=== PATIENT | male | born 2000 | race Hispanic/Latino ===

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

== ENCOUNTER 2018-01-03 14:36 | Emergency (ER) | payer OTHER ==
[2018-01-03 14:44] VITALS: BP 128/85; PULSE 73; RESP 18; TEMP 98; O2SAT 100
--- NOTE | 2018-01-03 15:22 | ED PDOC ---
HPI: Psych/Substance Abuse Time Seen by Provider: 01/03/18 14:59 Chief Complaint (Nursing): Substance Abuse Chief Complaint (Provider): reported drug use History Per: Patient History/Exam Limitations: no limitations Current Symptoms Are (Timing): Still Present Suicide/Self Injury Attempted (Context): None Modifying Factor(s): Marijuana Severity: Mild Associated Symptoms: denies: Depression, Paranoia, Suicidal Thoughts Additional Complaint(s): 17yo male arrives via EMS [place], on arrival he denies PCPC use, admits to marijuana use. He's cooperative, denies injury/ pain or psychiatric history. Past Medical History Reviewed: Historical Data, Nursing Documentation, Vital Signs Vital Signs: Last Vital Signs Temp 98 F 01/03/18 14:41 Pulse 73 01/03/18 14:41 Resp 18 01/03/18 14:41 BP 128/85 01/03/18 14:41 Pulse Ox 100 01/03/18 14:41 - Medical History PMH: No Chronic Diseases - Surgical History Surgical History: No Surg Hx - Family History Family History: States: Unknown Family Hx - Social History Current smoker - smoking cessation education provided: Yes Drugs: Cannabis - Allergies Allergies/Adverse Reactions: Allergies Allergy/AdvReac Type Severity Reaction Status Date / Time No Known Allergies Allergy Verified 12/02/17 23:17 Review of Systems Constitutional: Negative for: Fever, Chills Cardiovascular: Negative for: Chest Pain Respiratory: Negative for: Cough, Shortness of Breath Gastrointestinal: Negative for: Abdominal Pain Skin: Negative for: Rash, Lesions Neurological: Negative for: Seizures, Headache Psych: Negative for: Suicidal ideation Physical Exam - Reviewed Nursing Documentation Reviewed: Yes Vital Signs Reviewed: Yes - Physical Exam Appears: Positive for: Well, Non-toxic, No Acute Distress Head Exam: Positive for: ATRAUMATIC, NORMAL INSPECTION, NORMOCEPHALIC Skin: Positive for: Normal Color, Warm, DRY Eye Exam: Positive for: EOMI, Normal appearance, PERRL Neck: Positive for: Normal, Painless ROM Cardiovascular/Chest: Positive for: Regular Rate, Rhythm Respiratory: Positive for: Normal Breath Sounds. Negative for: Decreased Breath Sounds, Respiratory Distress Gastrointestinal/Abdominal: Positive for: Normal Exam, Bowel Sounds, Soft Back: Positive for: Normal Inspection Extremity: Positive for: Normal ROM Neurologic/Psych: Positive for: Alert, Oriented, Mood/Affect (cooperative, anxious), Gait (normal). Negative for: Motor/Sensory Deficits, Facial Droop - ECG O2 Sat by Pulse Oximetry: 100 Medical Decision Making Medical Decision Making: EKG interprted by me at sinus at 69bpm without tachycardia or ectopy patient wants to go home. Has stable vitals, not displaying any signs acute toxidrome, normal mentation, cannot hold against his will. Disposition - Clinical Impression Clinical Impression: Drug abuse - Patient ED Disposition Is Patient to be Admitted: No Counseled Patient/Family Regarding: Studies Performed, Diagnosis - Disposition Disposition: Routine/Home Disposition Time: 15:24 Condition: STABLE Instructions: Drug Abuse Treatment
== END 2018-01-03 16:54 | disposition home or self-care (01) ==
LOC: H.ER 14:36
DX: F19.10 Other psychoactive substance abuse, uncomplicated (principal)

== ENCOUNTER 2018-01-10 15:26 | Emergency (ER) | payer OTHER ==
[2018-01-10 15:30] VITALS: RESP 16
--- NOTE | 2018-01-10 16:51 | CT ---
PROCEDURE: CT HEAD WITHOUT CONTRAST. HISTORY: Altered mental status. Intracranial hemorrhage suspected COMPARISON: 12/03/2017 CT head TECHNIQUE: Axial computed tomography images were obtained through the head/brain without intravenous contrast. Radiation dose: Total exam DLP = 848.09 mGy-cm. This CT exam was performed using one or more of the following dose reduction techniques: Automated exposure control, adjustment of the mA and/or kV according to patient size, and/or use of iterative reconstruction technique. FINDINGS: HEMORRHAGE: No intracranial hemorrhage. BRAIN: No mass effect or edema. Stable encephalomalacia focus right basal ganglia. VENTRICLES: Unremarkable. No hydrocephalus. CALVARIUM: Unremarkable. PARANASAL SINUSES: Unremarkable as visualized. No significant inflammatory changes. MASTOID AIR CELLS: Unremarkable as visualized. No inflammatory changes. OTHER FINDINGS: None. IMPRESSION: No acute intracranial abnormalities. No significant findings to account for the clinical presentation. No significant interval change compared to the prior examination(s).
[2018-01-10 17:06] LABS: BASO # 0.1 K/uL (0.0-0.2); BASO % 0.7 % (0.0-2.0); EOS # 0.1 K/uL (0.0-0.7); EOS % 0.7 % (0.0-4.0); HEMOGLOBIN 15.9 g/dL (12.0-18.0); LYMPH # 1.3 K/uL (1.0-4.3); LYMPH % 15.1 % (20.0-40.0); MEAN CELL VOLUME 92.5 fl (80.0-94.0); MEAN CORPUSCULAR HEMOGLOBIN 31.9 pg (27.0-31.0); MEAN CORPUSCULAR HGB CONC 34.5 g/dL (33.0-37.0); MEAN PLATELET VOLUME 8.4 fl (7.2-11.7); MONO # 0.4 K/uL (0.0-0.8); NEUT # 6.9 K/uL (1.8-7.0); NEUT % 78.5 % (50.0-75.0); RED CELL DISTRIBUTION WIDTH 13.4 % (11.5-14.5); WHITE BLOOD COUNT 8.7 K/uL (4.8-10.8)
--- NOTE | 2018-01-10 17:13 | RAD ---
HISTORY: Shortness of breath. COMPARISON: No prior. FINDINGS: LUNGS: No active pulmonary disease. PLEURA: No significant pleural effusion identified, no pneumothorax apparent. CARDIOVASCULAR: Normal. OSSEOUS STRUCTURES: No significant abnormalities. VISUALIZED UPPER ABDOMEN: Normal. OTHER FINDINGS: None. IMPRESSION: No active disease.
[2018-01-10 17:17] LABS: ALB/GLOB RATIO 1.6 (1.0-2.1); ALT/SGPT 42 U/L (21-72); AST/SGOT 38 U/L (17-59); BLOOD UREA NITROGEN 13 mg/dl (9-20); CALCIUM 10.2 mg/dL (8.4-10.2); GFR AFRICAN-AMERICAN > 60; GFR NON-AFRICAN AMERICAN > 60
--- NOTE | 2018-01-10 17:35 | ED PDOC ---
HPI: Altered Mental Status Time Seen by Provider: 01/10/18 15:32 Chief Complaint (Nursing): Altered Mental Status Chief Complaint (Provider): AMS History Per: Patient, EMS History/Exam Limitations: Clinical Condition Onset/Duration Of Symptoms: Unknown Usual Baseline: Unknown Severity: Moderate Additional History Per: Prior Records Additional Complaint(s): 17yo male arrives via EMS, reportedly w AMS found on ground with poor hygiene, confused attempting to take off clothes. In ED patient poor historian, denies complaints. Per EMS was found in vicinity of others doing PCP, those patients later arrived to ED. Prior chart reveals recent visit for PCP abuse. Past Medical History Reviewed: Historical Data, Nursing Documentation, Vital Signs, Unable To Obtain Vital Signs: Last Vital Signs Temp 97.9 F 01/10/18 15:28 Pulse 63 01/10/18 15:28 Resp 16 01/10/18 15:28 BP 142/89 01/10/18 15:28 Pulse Ox 99 01/10/18 15:28 - Family History Family History: States: Unknown Family Hx - Allergies Allergies/Adverse Reactions: Allergies Allergy/AdvReac Type Severity Reaction Status Date / Time No Known Allergies Allergy Verified 12/02/17 23:17 Review of Systems Review Of Systems: ROS cannot be obtained secondary to pt's inabilty to answer questions. Physical Exam - Reviewed Nursing Documentation Reviewed: Yes Vital Signs Reviewed: Yes - Physical Exam Appears: Positive for: Non-toxic (poor hygiene, speech clear but refuses to answer many questions) Head Exam: Positive for: ATRAUMATIC, NORMAL INSPECTION, NORMOCEPHALIC Skin: Positive for: Normal Color, Warm, DRY Eye Exam: Positive for: EOMI, Normal appearance, PERRL ENT: Positive for: Normal ENT Inspection Neck: Positive for: Normal, Painless ROM Cardiovascular/Chest: Positive for: Regular Rate, Rhythm Respiratory: Positive for: CNT, Normal Breath Sounds Gastrointestinal/Abdominal: Positive for: Bowel Sounds, Soft. Negative for: Tenderness, Guarding Back: Positive for: Normal Inspection Extremity: Positive for: Normal ROM Neurologic/Psych: Positive for: Alert, Mood/Affect (uncooperative). Negative for: Aphasia, Facial Droop - Laboratory Results Result Diagrams: 01/10/18 16:59 01/10/18 16:59 - ECG O2 Sat by Pulse Oximetry: 99 Medical Decision Making Medical Decision Making: labs and CT ordered given recurrent visits for PCP use and found on ground placed 1:1 labs reviewed +PCP and THC otherwise bloodwork unremarkable CT brain unremarkable [address]p father on [address] per RN. patient is alert, oriented and cooperative. To DC to fathers care once arrived. Disposition - Clinical Impression Clinical Impression: Drug abuse - Patient ED Disposition Is Patient to be Admitted: No Counseled Patient/Family Regarding: Studies Performed, Diagnosis, Need For Followup - Disposition Referrals: [facility] [Outside] [facility] [Outside] Disposition: Routine/Home Disposition Time: 19:01 Condition: STABLE Additional Instructions: Avoid drug use. Instructions: Drug Abuse and Drug Addiction (DC) Forms: [facility] (Yoruba) Print Language: JAPANESE
[2018-01-10 18:08] LABS: URINE AMORPHOUS SEDIMENT OCC /ul (<OCC); URINE BACTERIA RARE (<OCC); URINE BILIRUBIN NEGATIVE (NEGATIVE); URINE BLOOD NEGATIVE (NEGATIVE); URINE CLARITY CLOUDY (Clear); URINE COLOR YELLOW (YELLOW); URINE GLUCOSE (UA) NEG (Normal); URINE LEUKOCYTE ESTERASE NEG Leu/uL (Negative); URINE PROTEIN NEGATIVE (NEGATIVE); URINE UROBILINOGEN 0.2-1.0 mg/dL (0.2-1.0)
[2018-01-10 18:38] LABS: BARBITURATES, UR NEGATIVE (NEGATIVE); BENZODIAZEPINES, UR NEGATIVE (NEGATIVE); OPIATES, UR NEGATIVE (NEGATIVE); PHENCYCLIDINE, UR POSITIVE (NEGATIVE)
[2018-01-10 19:57] VITALS: BP 121/66; PULSE 57; TEMP 98; O2SAT 98
--- NOTE | 2018-01-10 20:06 | CARD ---
APPROVED REPORT EKG Measurement Heart [id number] <Conclusion> Sinus bradycardia Otherwise normal ECG
== END 2018-01-10 20:25 | disposition home or self-care (01) ==
LOC: H.ER 15:26
DX: F16.10 Hallucinogen abuse, uncomplicated (principal)